=== PATIENT | male | born 1975 | race American Indian/Alaskan Native ===

== ENCOUNTER 2016-10-09 23:02 | Emergency (ER) | payer SELFPAY ==
[2016-10-09] MEDS ORDERED: MORPHINE ONE (23:47)
[2016-10-10 00:13] LABS: INR 0.86 (0.87-1.13)
[2016-10-10] MEDS ORDERED: NACL 0.9% 1000 ML 1,000 ML ONE ×2 (00:27→01:16)
[2016-10-10] MEDS ORDERED: PEPCID IV ONE (00:32)
[2016-10-10] MEDS ORDERED: REGLAN IV ONE (00:32)
[2016-10-10 00:33] LABS: Basophils % (Auto) 0.5 % (0.0-1.8); Eosinophils % (Auto) 0.8 % (0.0-4.3); Hematocrit 43.7 % (35.5-45.6); Hemoglobin 14.3 gm/dl (11.8-15.2); Mean Corpuscular HGB Conc 33 % (32-34); Mean Corpuscular Hemoglobin 29 pg (28-32); Mean Corpuscular Volume 89 fl (84-94); Platelet Count 250 K/mm3 (140-440); Red Blood Count 4.88 M/mm3 (3.65-5.03); Red Cell Distribution Width 14.3 % (13.2-15.2); White Blood Count 16.6 K/mm3 (4.5-11.0)
--- NOTE | 2016-10-10 01:00 | Emergency Department Report ---
HPI - General Chief Complaint: Abdominal Pain Time Seen by Provider: 10/10/16 00:32 - HPI HPI: Patient with history of H. pylori infection is here with severe epigastric area pain. He describes the pain as sharp, 10 out of 10, radiating to his back. Patient states the pain is accompanied by vomiting, nausea, shortness of breath. Patient has not taken any medication for his symptoms. Patient denies any alleviating or exacerbating factors. ED Past Medical Hx - Past Medical History Previous Medical History?: Yes Additional medical history: H. pylori infection - Surgical History Past Surgical History?: No - Family History Family history: hypertension - Social History Smoking Status: Current Every Day Smoker Substance Use Type: Alcohol - Medications Home Medications: Home Medications Medication Instructions Recorded Confirmed Last Taken Type Cyclobenzaprine [Flexeril] 10 mg PO TID PRN #15 tablet 11/29/15 Unknown Rx Ibuprofen [Motrin] 800 mg PO Q8HR PRN #15 tablet 11/29/15 Unknown Rx Omeprazole 40 mg PO DAILY #30 capsule. 10/10/16 Unknown Rx ED Review of Systems ROS: Stated complaint: ABD PAIN/VOMITING/NAUSEA Other details as noted in HPI Comment: All other systems reviewed and negative Cardiovascular: as per HPI Endocrine: no symptoms reported Gastrointestinal: abdominal pain, nausea, vomiting Physical Exam - Physical Exam Vital Signs: Vital Signs 10/09/16 10/09/16 10/09/16 23:04 23:36 23:45 Temperature 99.4 F Pulse Rate 78 80 81 Respiratory 22 10 L 17 Rate Blood Pressure 133/66 127/86 O2 Sat by Pulse 100 96 Oximetry 10/09/16 10/10/16 10/10/16 23:54 00:00 00:15 Temperature 97.6 F Pulse Rate 75 67 69 Respiratory 16 11 L 20 Rate Blood Pressure 141/104 121/84 113/66 O2 Sat by Pulse 100 100 Oximetry 10/10/16 10/10/16 00:30 00:45 Temperature Pulse Rate 73 59 L Respiratory 22 15 Rate Blood Pressure 123/76 114/71 O2 Sat by Pulse 100 99 Oximetry Physical Exam: - General Limitations: No Limitations General appearance: alert, in no apparent distress - Head Head exam: Present: atraumatic, normocephalic - Eye Eye exam: Present: normal appearance - ENT ENT exam: Present: mucous membranes moist - Neck Neck exam: Present: normal inspection - Respiratory Respiratory exam: Present: normal lung sounds bilaterally. Absent: respiratory distress - Cardiovascular Cardiovascular Exam: Present: normal rhythm, tachycardia. Absent: systolic murmur, diastolic murmur, rubs, gallop - GI/Abdominal GI/Abdominal exam: Present: soft, normal bowel sounds - Extremities Exam Extremities exam: Present: normal inspection - Back Exam Back exam: Present: normal inspection - Neurological Exam Neurological exam: Present: alert, oriented X3, - Skin Skin exam: Present: warm, dry, intact, normal color. Absent: rash ED Course Vital Signs 10/09/16 10/09/16 10/09/16 23:04 23:36 23:45 Temperature 99.4 F Pulse Rate 78 80 81 Respiratory 22 10 L 17 Rate Blood Pressure 133/66 127/86 O2 Sat by Pulse 100 96 Oximetry 10/09/16 10/10/16 10/10/16 23:54 00:00 00:15 Temperature 97.6 F Pulse Rate 75 67 69 Respiratory 16 11 L 20 Rate Blood Pressure 141/104 121/84 113/66 O2 Sat by Pulse 100 100 Oximetry 10/10/16 10/10/16 00:30 00:45 Temperature Pulse Rate 73 59 L Respiratory 22 15 Rate Blood Pressure 123/76 114/71 O2 Sat by Pulse 100 99 Oximetry ED Medical Decision Making - Lab Data Result diagrams: 10/09/16 23:50 10/10/16 01:44 Critical care attestation.: If time is entered above; I have spent that time in minutes in the direct care of this critically ill patient, excluding procedure time. ED Disposition Clinical Impression: Gastritis Qualifiers: Gastritis type: other gastritis Chronicity: acute Gastritis bleeding: without bleeding Qualified Code(s): K29.00 - Acute gastritis without bleeding Disposition: - TO HOME OR SELFCARE Is pt being admited?: No Does the pt Need Aspirin: No Condition: Stable Prescriptions: Omeprazole 40 mg PO DAILY #30 capsule.dr Referrals: PRIMARY CARE, [Primary Care Provider] - 3-5 Days
[2016-10-10 01:18] LABS: Albumin 4.7 g/dL (3.9-5); Albumin/Globulin Ratio 1.4 %; BUN/Creatinine Ratio 8.88; Blood Urea Nitrogen 8 mg/dL (9-20); Calcium 9.3 mg/dL (8.4-10.2); Chloride 99.9 mmol/L (98-107); Glucose 107 mg/dL (75-100); Lipase 22 units/L (13-60); Sodium 138 mmol/L (137-145); Total Protein 8.1 g/dL (6.3-8.2)
[2016-10-10 01:24] LABS: Alanine Aminotransferase 19 units/L (7-56); Alkaline Phosphatase 32 units/L (35-129); Anion Gap 24 mmol/L; Carbon Dioxide 22 mmol/L (22-30); Potassium 8.1 mmol/L (3.6-5.0)
[2016-10-10] MEDS ORDERED: NACL 0.9% 1000 ML 1,000 ML IV ONE ×2 (01:29→01:30)
[2016-10-10] MEDS ORDERED: MORPHINE IV ONE (01:29)
[2016-10-10] MEDS ORDERED: NACL ONE (01:35)
--- NOTE | 2016-10-10 03:22 | Cat Scan Report ---
FINAL REPORT EXAM: CT ABDOMEN PELVIS W CON HISTORY: abd pain TECHNIQUE: Spiral CT scanning of the abdomen and pelvis after the uneventful administration of IV contrast. Multiplanar reformations. 100 mL Omnipaque IV. PRIORS: None. FINDINGS: Abdomen: Visualized lung bases grossly unremarkable. No radiopaque gallstones. Liver without significant abnormality. Spleen without significant abnormality. Pancreas without significant abnormality. Kidneys without significant abnormality. Adrenal glands without significant abnormality. Pelvis: Bowel evaluation limited due to lack of oral contrast administration and also paucity of intraperitoneal fat, but grossly unremarkable. Appendix is not confidently identified. Trace amount of nonspecific, free fluid in the pelvis. No discrete abscess. Abdominal aorta non-aneurysmal. Prostate appears enlarged and heterogeneously enhancing possibly postinflammatory, but nonspecific. IMPRESSION: 1. Prostatomegaly may be postinflammatory, but nonspecific. Correlate clinically. 2. No other acute findings.
[2016-10-10 04:03] LABS: Urine Drugs of Abuse Note Disclamer
[2016-10-10 04:21] LABS: Bilirubin,Urine NEG (Negative); Blood,Urine NEG (Negative); Ketones,Urine 80 mg/dL (Negative); Leukocyte Esterase,Urine NEG (Negative); Mucus,Urine FEW /HPF; Nitrite,Urine NEG (Negative)
[2016-10-10 05:26] VITALS: BP 128/76
--- NOTE | 2016-10-10 07:37 | XRay Report ---
AP CHEST: HISTORY: Sepsis AP view of the chest demonstrates a normal mediastinal and cardiac contour with clear lungs and normal bony and soft tissue structures. IMPRESSION: Unremarkable AP chest.
== END 2016-10-10 05:26 | disposition home or self-care (01) ==
LOC: ED 23:02
DX: K29.70 Gastritis, unspecified, without bleeding (principal); F17.210 Nicotine dependence, cigarettes, uncomplicated
CPT/HCPCS: 36415; 71010; 74177; 80053; 80307; 81001; 82140; 82805; 83690; 84132; 85025; 85610; 87086; 96361; 96374; 96375; 99285; J2270; J2765; J7030; Q9967